=== PATIENT | male | born 1990 | race Caucasian/White ===

== ENCOUNTER 2018-10-16 10:20 | Emergency (ER) | payer OTHER | END 2018-10-16 12:58 | LOC: ED 10:20 | DX: S61.412A Laceration without foreign body of left hand, initial encounter (principal); W26.0XXA Contact with knife, initial encounter; Y93.89 Activity, other specified; Y92.9 Unspecified place or not applicable | CPT/HCPCS: 12004; 99282 ==

== ENCOUNTER 2018-10-21 16:01 | Emergency (ER) | payer OTHER ==
[2018-10-21 16:17] VITALS: BP 148/68
--- NOTE | 2018-10-21 16:31 | ED Physician Documentation ---
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 Patient had stitches placed on 10/17/2018; fell last night walking his dog, put his hand down to catch himself. 4 sutures "popped".) - ROS CONST: no problems EYES/ENT: none CVS/RESP: none GI/: none MS/SKIN/LYMPH: none NEURO/PSYCH: denies: headache, fainting, dizziness, tingling, numbness, difficulty walking, difficulty with speech, anxiety, depression, other - PAST HX Past History: none Allergies/Adverse Reactions: Allergies Allergy/AdvReac Type Severity Reaction Status Date / Time No Known Allergies Allergy Verified 10/21/18 16:12 Home Medications: Ambulatory Orders Medication Instructions Recorded [place] Carbonate [[place] 900 mg PO DAILY u2 01/15/18 Carbonate Er] Risperidone 2 mg PO DAILY u2 01/15/18 - SOCIAL HX Smoking History: cigarettes Alcohol Use: heavy - FAMILY HX Family History: No - VITAL SIGNS Vital Signs: Vital Signs Temp Pulse Resp BP Pulse Ox 98.0 F 69 16 148/68 99 10/21/18 16:13 10/21/18 16:13 10/21/18 16:13 10/21/18 16:13 10/21/18 16:13 - REVIEWED ASSESSMENTS Nursing Assessment Reviewed: Yes Vitals Reviewed: Yes Progress - Progress Progress: wound cleaned with hibiclens; 2 sutures removed in dehiscenced area. Steri strips applied to open area to approximate wound. Patient tolerated well. General Adult Physical Exam - PHYSICAL EXAM GENERAL APPEARANCE: strong smell of ETOH RESPIRATORY: no resp distress CVS: reg rate & rhythm SKIN: warm/dry, normal color, other (left hand palmar aspect with 6 cm wound; 2 cm open area with open dehiscenced area. 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 Do not wash, get wet or pull the strips off. Clean open area laceration twice a day with soap and water. Have your stitches removed at the doctor's office on October 28 Condition: Stable Disposition: HOME, SELF-CARE Decision to Admit: NO Decision Time: 16:31
== END 2018-10-21 16:36 | disposition home or self-care (01) ==
LOC: ED 16:01
DX: T81.33XA Disruption of traumatic injury wound repair, initial encounter (principal); W01.0XXA Fall on same level from slipping, tripping and stumbling without subsequent striking against object, initial encounter; Y93.K1 Activity, walking an animal
CPT/HCPCS: 99281; S1016